=== PATIENT | male | born 1990 | race Caucasian/White ===

== ENCOUNTER 2018-03-12 01:40 | Emergency (ER) | payer OTHER ==
[~2018-03-12] VITALS: Ht 185.4 cm; Wt 95.3 kg
[2018-03-12 01:57] VITALS: Ht 185.4 cm; Wt 95.3 kg
[2018-03-12 04:46] VITALS: BP 138/82
== END 2018-03-12 04:51 | disposition home or self-care (01) ==
LOC: ED 01:40
DX: S53.401A Unspecified sprain of right elbow, initial encounter (principal); W18.39XA Other fall on same level, initial encounter; Y93.89 Activity, other specified; Y92.89 Other specified places as the place of occurrence of the external cause; Y99.8 Other external cause status